=== PATIENT | female | born 1930 | race Caucasian/White ===

== ENCOUNTER 2017-01-09 15:23 | Inpatient (IN) ==
--- NOTE | 2017-01-09 16:07 | Emergency Department Note ---
Arrival - Arrival Chief Complaint: Weakness ED Nursing Triage Note: pt fell sunday. pt has swelling to legs. pt c/o weakness and pain to lt hip and lt shoulder Mode of Arrival: Stretcher Limitations: No Limitations Source: Patient, Family, RN Notes Reviewed Time Seen by Provider: 01/09/17 15:45 - History of Present Illness HPI Narrative: Patient is an 86-year-old white female who is a resident of [facility]. The patient apparently fell Sunday morning. She has difficulty standing now. The fall occurred 2 days prior to presentation to the emergency department. Patient denies hitting her head. She has not experienced any nausea or vomiting. She does complain of some left shoulder and left hip pain. Onset (ago): day(s) (2) Consistency: constant Severity: moderate Allergies/Adverse Reactions: Allergies Allergy/AdvReac Type Severity Reaction Status Date / Time No Known Allergies Allergy Unverified 01/09/17 15:39 Review of System - Review of System 12 point system: reviewed and no additional remarkable complaints except as stated - Review of System Constitutional: Absent: chills, fever Gastrointestinal: Absent: nausea, vomiting Medical,Surgical,& Family Hx - Medical History Cardio: History of: Hypertension Other: History of: Miscellaneous Medical Problems (lymphedema) - Social History Smoking Status: Never smoker Frequency of Alcohol Use: None Type of Drug Use: None Functional capacity: independent ambulation Exam Vital Signs: Vital Signs Temperature 98.5 F 01/09/17 16:48 Pulse Rate 110 H 01/09/17 16:48 Respiratory Rate 18 01/09/17 16:54 Blood Pressure 165/94 01/09/17 16:48 O2 Sat by Pulse Oximetry 98 01/09/17 15:30 GENERAL: This is a chronically ill-appearing white female in no apparent distress. VITAL SIGNS: Reviewed HEENT: Head is atraumatic and normocephalic. Pupils are equal round react to light. Extraocular movements are intact. Oropharynx is benign with moist mucous membranes. NECK: Neck is soft and supple without tenderness. There are no masses. There is no lymphadenopathy. LUNGS: Lungs are clear to auscultation. Chest rises symmetrically. There is no chest wall tenderness. CV: Heart is regular rate and rhythm without murmurs rubs or gallops. ABDOMEN: Abdomen is soft, nontender to palpation. There are no abdominal abnormal masses palpated. There is no organomegaly. Bowel sounds are present and active. SKIN: Skin is warm and dry. No rash. EXTREMITIES: Decreased passive range of motion in the left shoulder with decrease in abduction, internal and external rotation. Patient has reproducible pain with passive range of motion left hip. There is minimal tenderness overlying the left GT area. There is 2+ nonpitting pedal edema. NEUROLOGIC: Awake, alert, oriented to person. Cranial nerves II through XII are grossly intact. Motor is 4 over 5 in all extremities bilaterally. Deep tendon reflexes are 2+ and bilaterally equal. Course Course Narrative: Patient is unable to stand even with the assistance of 2 people. She is unable to perform her transfers. - Consultations Consultation #1: Discussed with hospitalist. Patient will be admitted to their service. Time: 18:04 Results - Labs CBC & BMP: 01/09/17 16:47 01/09/17 16:47 Lab Results: I have reviewed the patients labs Labs: Laboratory Tests 01/09/17 16:36 Urine pH 5.0 Ur Specific [place] 1.028 Urine Protein 30 Urine Glucose (UA) 50 Urine RBC 5 Urine WBC 3 - Diagnostic Findings Procedure: CT: image reviewed by me (CT pelvis: No evidence of acute fracture. Patient has severe DJD of the hips. Venous stent is present on the left), X-ray : image reviewed by me (Left shoulder x-ray: DJD of the left shoulder. Left hip x-ray: DJD of the left hip. No evidence of fracture. Left knee x-ray: No evidence of fracture, + DJD.) Disposition Clinical Impression: Fall, Dementia Case discussed with: patient, patient's family Condition: Stable
--- NOTE | 2017-01-09 16:26 | XRay Report ---
XR shoulder 2V LT Indication: Left shoulder pain, fall Comparison: None Technique: Frontal views of the left shoulder in internal and external rotation. Findings: No definite acute fracture or dislocation. Severe degenerative change of the glenohumeral joint. Calcific density noted along the supraspinatus attachment which may reflect calcific tendinosis. Diffuse osteopenia. IMPRESSION: As above. PROCEDURE INTERPRETED AT [facility] DEPARTMENT OF RADIOLOGY Final Report Signed by: Dr Rey Graff
--- NOTE | 2017-01-09 16:27 | XRay Report ---
XR hip 2v w pelvis LT Indication: Left hip pain, fall Comparison: None Technique: Single frontal view of the pelvis as well as frontal and frog-leg lateral views of the left hip Findings: Stent graft projects over the distal aorta and left iliac vasculature. Diffuse osteopenia. Moderate degenerative change of the hips. No definite acute fracture or dislocation demonstrated. Degenerative change of the lower lumbar spine. IMPRESSION: As above. PROCEDURE INTERPRETED AT [facility] DEPARTMENT OF RADIOLOGY Final Report Signed by: Dr Rey Graff
--- NOTE | 2017-01-09 17:15 | CT Report ---
CT pelvis wo con Indication: Left hip pain after fall. CT pelvis without contrast Technique: Axial noncontrast CT images of the pelvis were obtained. Coronal and sagittal reconstructions were provided. Findings: There is a venous stent extending from the left superficial femoral vein through the iliac system into the IVC. Visualized bowel, bladder and lower pole both kidneys appear unremarkable. No bowel obstruction. Both hips demonstrate joint space narrowing, acetabular and femoral head osteophyte development. No acute fracture of the femoral neck, intertrochanteric segment or acetabulum identified. Bony pelvis is intact without fracture. No diastases of the SI joints despite osteophytosis. Robust degenerative changes of the lumbar spine noted including grade 2 anterolisthesis of L4 on 5 and associated facet joint hypertrophy. Impression: Moderate arthritic changes of both hips and severe arthritis of the lumbar spine. No acute pelvic or hip fracture identified. Left femoral venous stent extending to the IVC. PROCEDURE INTERPRETED AT [facility] DEPARTMENT OF RADIOLOGY Final Report Signed by: Alli Samuel M.D.
[2017-01-09 17:19] LABS: Apearance,Urine CLEAR (Clear); Bilirubin,Urine Negative (Negative); Blood, Urine Negative (Negative); Glucose,Urine (UA) 50 mg/dL (Negative); Ketones,Urine Negative (Negative); Mucus,Urine Occasional /LPF (Occasional); Nitrite,Urine Negative (Negative); Protein,Urine 30 MG/DL; RBC,Urine 5 /HPF (0-4); Squamous Epithelial Cell,Urine Occasional /HPF (0-10); Urine Color Yellow (Yellow); Urine Specific Gravity 1.028 (1.001-1.035); WBC,Urine 3 /HPF (0-6)
[2017-01-09 17:23] LABS: Basophils % 0.3 % (0.0-0.8); Eosinophils % 0.2 % (0.00-10.9); Hemoglobin 12.9 GM/DL (12.0-16.0); Immature Granulocytes % 0.4 %; Immature Granulocytes Absolute 0.04 #; Lymphocytes # 1.9 10*3/uL (1.4-4.0); Lymphocytes % 19.1 % (21.3-54.2); Mean Corpuscular HGB Conc 33.9 GM/DL (32-36); Mean Corpuscular Hemoglobin 32 PG (27-34); Mean Platelet Volume 9.7 FL (9.6-12.0); Monocytes # 1.1 10*3/uL (0.11-0.8); Monocytes % 11.3 % (1.7-12.7); Neutrophils # 6.8 10*3/uL (1.4-7.4); Neutrophils % 68.7 % (38.7-73.9); Platelet Count 255 T/CUMM (130-400); Red Cell Distribution Width 12.6 % (9.3-17.3); White Blood Count 9.9 T/CUMM (4-12)
[2017-01-09 17:37] LABS: Bilirubin,Total 0.5 MG/DL (0.2-1.0); Calcium 9.2 MG/DL (8.5-10.1); Osmolality,Calculated 287.1 MOS/KG (273-304); Potassium 3.4 MMOL/L (3.5-5.1); Total Protein 6.1 G/DL (6.4-8.3)
--- NOTE | 2017-01-09 18:12 | XRay Report ---
XR knee 2V LT Indication: Pain. Left knee 3 views: No acute fracture or dislocation identified. There is a small joint effusion present as well as significant medial and lateral compartment joint space narrowing as well as 3 compartment osteophyte development. Chondrocalcinosis is noted as well. Impression: No acute injury. Relatively severe 3 compartment osteoarthritis with joint effusion and chondrocalcinosis. PROCEDURE INTERPRETED AT [facility] DEPARTMENT OF RADIOLOGY Final Report Signed by: Alli Samuel M.D.
--- NOTE | 2017-01-09 18:54 | Hospitalist History & Physical ---
Assessment and Plan (1) Hypokalemia Status: Acute Assessment and plan: Potassium noted at 3.4 at the time of admission. We will correct and recheck CMP in a.m. Current Visit: Yes (2) Dementia Status: Acute Current Visit: Yes (3) Fall Status: Acute Assessment and plan: All diagnostic tests thus far have been benign, there is no evidence of fracture. We will consult physical therapy to evaluate and treat. The patient may need swing bed placement if therapy is not available at [place]. Current Visit: Yes History of Present Illness Chief complaint: Generalized weakness secondary to fall History of present illness: This is a very pleasant 86-year-old female that presented to the ED at [facility] this afternoon from [place] for the evaluation of generalized weakness. The patient has a very complex medical history significant for hypertension, lymphedema, dementia. The patient's family is at bedside they was service historian. Her daughter reports that she was notified by the staff at [place] that her mother had sustained a fall early Sunday morning. Since the fall, the patient has become progressively weaker and has started to experience an inability to stand. Her daughter reports that she was told by the nursing staff that her mother did not strike her he however the patient has no recollection of the event. Upon interview, the patient did complain of some left shoulder and left hip pain. Labs were obtained at the time of presentation which were significant for hypokalemia with a potassium of 3.4, BUN of 21, glucose of 142, total protein of 6.1,and albumin at 3.0. X-ray of the left knee revealed no acute injury, severe 3 compartment osteoarthritis with joint effusion, and chondrocalcinosis. CT of the pelvis reported moderate arthritic changes in both hips and severe arthritis of the lumbar spine, no acute pelvic or hip fracture identified, and left venous staining extending to the inferior vena cava. X-ray of the left shoulder revealed no definite acute fraction or dislocation, severe degenerative change of the glenohumeral joint, calcific density noted along the supra spinatus attachment which may reflect calcific tendinosis, and diffuse osteopenia. X-ray of the left hip reported stent graft projects over the distal aorta and left iliac vasculature, diffuse osteopenia, moderate degenerative change of the hips, no definitive acute fracture or dislocation demonstrated, and degenerative change of the lower lumbar spine. After brief discussion with both Dr. Anne and Dr. Puentes, the patient will be admitted to the hospitalist service for further evaluation and continuation of care. Allergies Allergy/AdvReac Type Severity Reaction Status Date / Time No Known Allergies Allergy Unverified 01/09/17 15:39 Medical,Surgical,& Family Hx - Medical History Cardio: History of: Hypertension Other: History of: Miscellaneous Medical Problems (lymphedema) - Social History Smoking Status: Never smoker Frequency of Alcohol Use: None Type of Drug Use: None ROS unobtainable: due to mental status Exam - Constitutional Vitals: Period Temp Pulse Resp BP Sys/Croft Pulse Ox Last 24 Hr 98.5 F-98.5 F 110-110 18-18 165-165/94-94 98 General appearance: normal weight, no acute distress - Head Head exam: Present: normal inspection, normocephalic, atraumatic - Eye Eye exam: Present: EOMI. Absent: conjunctival injection, nystagmus Pupils: Present: BHAVESH, normal accommodation - ENT ENT exam: Present: normal exam, normal external ear exam, normal oropharynx - Neck Neck exam: Present: normal inspection. Absent: lymphadenopathy, meningismus, tenderness, thyromegaly - Respiratory Respiratory exam: Present: clear to auscultation bilaterally. Absent: rales, rhonchi, stridor, wheezes - Cardiovascular Cardiovascular exam: Present: irregular rhythm, regular rate and rhythm. Absent : carotid bruit, diastolic murmur, gallop, JVD, rubs, systolic murmur - GI/Abdominal GI/Abdominal exam: Present: normal bowel sounds, soft - Extremities Exam Extremities exam: Present: edema (+3 right lower leg; +4 left lower leg), other (Decreased ROM to left leg; painful to touch) - Neurological Exam Neurological exam: Present: alert, altered - Psychiatric Psychiatric exam: Present: normal affect, normal mood - Skin Skin exam: Present: normal color, warm, dry Results - Labs CBC & BMP: 01/09/17 16:47 01/09/17 16:47 Lab Results: I have reviewed the past 24 hour labs
[2017-01-09] MEDS ORDERED: ZALEPLON 5 MG CAPSULE PO PRN (19:00)
[2017-01-09] MEDS ORDERED: ACETAMINOPHEN 325 MG TABLET PO PRN (19:00)
[2017-01-09] MEDS ORDERED: ONDANSETRON 4 MG/2 ML VIAL IV PRN (19:00)
[2017-01-09] MEDS ORDERED: POTASSIUM CHLORIDE 20 MEQ TABLET PO ONE (19:59)
--- NOTE | 2017-01-09 21:04 | EKG Report ---
Stationary ECG Study [facility] Test Date: 01/09/2017 9:03:23 PM Pat Name: NICOLA RANDALL Department: Room: 535 Gender: F Car Sales Consultant: KIMBERLEY KENNEDY : 1930 Requested by: Darrian Puentes Order Number: [id number] Reading MD: SHAWNA PIZARRO Intervals [place] Rate: 98 P: 48 AR: 171 QRS: 48 QRSD: 129 T: -12 QT: 384 QTc: 439 Interpretive Statements SINUS RHYTHM WITH OCCASIONAL SUPRAVENTRICULAR PREMATURE COMPLEXES MODERATE INTRAVENTRICULAR CONDUCTION DELAY Electronically Signed On 01-11-17 16:34:00 CDT by SHAWNA PIZARRO [email or web address]
[2017-01-09] MEDS: SODIUM CHLORIDE 0.9% 1,000 ML IV SCH (22:05)
[2017-01-09] MEDS: DOCUSATE SODIUM 100 MG CAPSULE PO SCH (22:08)
[2017-01-09] MEDS: ENOXAPARIN 40 MG/0.4 ML SYRINGE SUBCUT SCH (22:08)
[2017-01-10 05:18] LABS: Basophils % 0.4 % (0.0-0.8); Eosinophils % 0.3 % (0.00-10.9); Hematocrit 35.1 VOL% (35.7-47.0); Hemoglobin 11.4 GM/DL (12.0-16.0); Immature Granulocytes % 0.4 %; Immature Granulocytes Absolute 0.03 #; Lymphocytes # 1.4 10*3/uL (1.4-4.0); Lymphocytes % 18.3 % (21.3-54.2); Mean Corpuscular HGB Conc 32.5 GM/DL (32-36); Mean Corpuscular Hemoglobin 31 PG (27-34); Mean Corpuscular Volume 95.9 FL (87-102); Mean Platelet Volume 9.6 FL (9.6-12.0); Monocytes # 0.9 10*3/uL (0.11-0.8); Monocytes % 12.1 % (1.7-12.7); Neutrophils # 5.1 10*3/uL (1.4-7.4); Neutrophils % 68.5 % (38.7-73.9); Platelet Count 216 T/CUMM (130-400); Red Blood Count 3.66 MC/CUMM (3.8-5.5); Red Cell Distribution Width 12.5 % (9.3-17.3); White Blood Count 7.4 T/CUMM (4-12)
[2017-01-10 05:56] LABS: Albumin 2.5 G/DL (3.4-5.0); Bilirubin,Total 1.2 MG/DL (0.2-1.0); Calcium 8.7 MG/DL (8.5-10.1); Osmolality,Calculated 281.3 MOS/KG (273-304); Potassium 3.6 MMOL/L (3.5-5.1); Total Protein 5.3 G/DL (6.4-8.3)
[2017-01-10 05:57] LABS: Calcium 8.4 MG/DL (8.5-10.1); Magnesium 1.7 MG/DL (1.8-2.4); Osmolality,Calculated 282.1 MOS/KG (273-304); Potassium 3.7 MMOL/L (3.5-5.1)
[2017-01-10] MEDS ORDERED: MAGNESIUM SULF RIDER 2 GM in PREMIX 1 EACH IV ONE (06:53)
[2017-01-10] MEDS: DOCUSATE SODIUM 100 MG CAPSULE PO SCH ×2 (09:13→20:27)
[2017-01-10] MEDS: PANTOPRAZOLE 40 MG TABLET PO SCH (09:13)
[2017-01-10] MEDS: SODIUM CHLORIDE 0.9% 1,000 ML IV SCH ×2 (14:34→23:14)
--- NOTE | 2017-01-10 17:09 | Hospitalist Progress Note ---
Assessment and Plan (1) Hypomagnesemia Status: Acute Current Visit: Yes (2) Fall Status: Acute Assessment and plan: Orthopedic surgery evaluation of left knee. PT OT consult. Discharge planning. Current Visit: Yes (3) Dementia Status: Chronic Current Visit: Yes Qualifiers: Dementia type: Alzheimer's disease (4) Hypokalemia Status: Acute Assessment and plan: Replaced Current Visit: Yes Hospitalist: Subjective Interval history: Patient seen and examined. No acute events overnight. Case discussed with nursing staff. Labs reviewed. Case discussed with the daughter at the bedside. Patient with advanced dementia is unable to provide much history. H& P reviewed. The patient has left knee pain and swelling with warmth to touch. X-rays were negative for acute fracture. Will consult orthopedic surgery and await PT OT evaluation. Patient may not be able to return to independent living in the short-term. Case also discussed with case management//social media strategist Exam - Constitutional Vitals: Period Temp Pulse Resp BP Sys/Croft Pulse Ox Last 24 Hr 97.9 F-99.0 F 90-102 18-20 146-178/70-87 97-99 Exam: Constitutional System: Mild distress. No tremulousness. Head: Normocephalic, atraumatic. Ears, Nose and Throat System: No pain or tenderness. No epistaxis or discharge Eyes System: Pupils equal, round, and reactive. Extraocular muscles intact. Neck: Supple, without adenopathy, No jugular venous distention. No thyromegaly, neck mass, or prior surgery apparent. Respiratory System: Chest clear to auscultation. Cardiovascular System: Heart with regular rate and rhythm. No murmur. GI System: Abdomen soft, nontender. Normo active bowel sounds present. Musculoskeletal System: limbs with no pedal edema. Full distal pulses. Swelling noted in the left knee with pain to touch and warmth to touch. No fluctuance and no sign of infection. Neurological System: No discernable sensory deficit. No aphasia Psychiatric System: Conversation is rational. Patient is pleasantly demented. Results - Labs CBC & BMP: 01/10/17 05:02 01/10/17 05:02 Lab Results: I have reviewed the past 24 hour labs
[2017-01-10] MEDS ORDERED: methylPREDNISolone ACETATE 40 MG/1 ML VIAL INTRAARTIC ONE (17:30)
--- NOTE | 2017-01-10 17:32 | Orthopedic Consult Note ---
History of Present Illness Chief complaint: Swollen painful left knee History of present illness: Ms. Hamm is a 86 year old female See dictated report Home Medications Medication Instructions Recorded Confirmed Type Mecobal/Levomefolat Ca/B6 Phos 1 tablet PO DAILY 01/10/17 01/10/17 History [Foltanx Tablet] Metoprolol Succinate Xl [Toprol Xl] 1 tablet PO DAILY 01/10/17 01/10/17 History Valsartan/Hydrochlorothiazide 1 tablet PO DAILY 01/10/17 01/10/17 History [Valsartan-Hctz 320-25 mg Tab] Allergies Allergy/AdvReac Type Severity Reaction Status Date / Time No Known Allergies Allergy Unverified 01/09/17 15:39 Medical,Surgical,& Family Hx - Medical History Cardio: History of: Hypertension Psychological: No history of: Anxiety Disorders, ADHD, Behavior Problems, Bipolar Disorder, Depression, Previous Suicide Attempt, Psychiatric/Substance Abuse Tx, Schizophrenia, Violent Behavior, Psychiatric Problems Neurology: History of: Dementia HEENT: History of: Eye Problem (cataract surgery bilat) Other: History of: Miscellaneous Medical Problems (lymphedema) - Surgical History Thoracic Surgeries: Patient denies;: Lobectomy Neurologic Surgeries: Patient denies: Neurologic Surgery - Social History Smoking Status: Never smoker Frequency of Alcohol Use: None Type of Drug Use: None Exam - Constitutional Vitals: Period Temp Pulse Resp BP Sys/Croft Pulse Ox Last 24 Hr 97.9 F-99.0 F 90-102 18-20 146-178/70-87 97-99 Results - Labs CBC & BMP: 01/10/17 05:02 01/10/17 05:02
[2017-01-10] MEDS: ENOXAPARIN 40 MG/0.4 ML SYRINGE SUBCUT SCH (20:27)
--- NOTE | 2017-01-11 03:03 | Consultation ---
An 86-year-old white female admitted to the medical service with acute onset of left knee pain and in ability to ambulate. Her family reports that she has been ambulatory in the nursing center where she lives. As recently as a few days ago, she was ambulating with [place] walk[place]. There was some type of injury or fall approximately 48 hours ago. Since that time, she has not been able to bear w eight. There is significant amount of weakness and deconditioning due to her age and other comorbidi ties. I have been asked to evaluate regarding her left knee pain, swelling, and warmth. PHYSICAL EXAMINATION Examination confirms a well-developed and well-nourished female. Both knees revealed moderate swelli ng. She has no effusion on the right knee. On the left side, she has approximately 30 cc effusion. She will not tolerate any range of motion beyond about 15 degrees of flexion. She is stable ligamen tously to the varus and valgus stress, but does not clinically have a septic knee. She will tolerate palpation and ballottement about her patella and the knee joint. There is no pain or swelling dista lly. RADIOGRAPHS: Confirm significant tricompartmental osteoarthritis. There is marked joint space narro wing and large osteophyte formations throughout. IMPRESSION: OSTEOARTHRITIS, LEFT KNEE. PLAN: I have discussed with she and her family my impression. I think there is a low probability of an infection, she does not act like a septic knee and her white count is normal. I have discussed w ith her the treatment options. We elected to aspirate the knee, approximately 30 cc of slightly clou dy but normal appearing synovial fluid was aspirated. This was followed up with 3 cc of 1% lidocaine and Depo-Medrol 40 mg. She immediately was able to move the knee about 45 degrees following the rem oval of the effusion. I have recommended an ice pack and hopefully up with the PT in the a.m. Thank you for the consultation.
[2017-01-11] MEDS: SODIUM CHLORIDE 0.9% 1,000 ML IV SCH ×2 (03:46→16:08)
[2017-01-11 05:07] LABS: Calcium 8.8 MG/DL (8.5-10.1); Magnesium 2.1 MG/DL (1.8-2.4); Potassium 3.8 MMOL/L (3.5-5.1)
[2017-01-11] MEDS: MELOXICAM 7.5 MG TABLET PO SCH (08:46)
[2017-01-11] MEDS: DOCUSATE SODIUM 100 MG CAPSULE PO SCH ×2 (08:46→20:19)
[2017-01-11] MEDS: PANTOPRAZOLE 40 MG TABLET PO SCH (08:46)
--- NOTE | 2017-01-11 08:51 | Orthopedic Progress Note ---
Orthopedics - Subjective Interval history: Confused this a.m. however knee is better less swelling and she can actively bend about 45 without much discomfort. Should improve following aspiration and injection if any problems concerns let us know follow-up as needed thank Exam - Constitutional Vitals: Period Temp Pulse Resp BP Sys/Crotf Pulse Ox Last 24 Hr 97.6 F-99.9 F 84-98 16-18 150-160/59-91 95-96 Results - Labs CBC & BMP: 01/10/17 05:02 01/11/17 03:38
--- NOTE | 2017-01-11 11:03 | Case Mgmt Physician Query Form ---
TB Signs and Symptoms Screening ([place]) INSTRUCTIONS: To be completed annually on residents/staff with a significant Tuberculin Skin Test (TST) upon admission/hire or a prior significant TST. To be completed on all staff at hire. Please respond to each listed symptom with an (X) in either the "YES" or "NO" box. Do you currently have any of the following symptoms: YES NO ( ) ( x) A cough If yes, is it: ( ) Productive ( ) Non- productive ( ) (x ) Hemoptysis (spitting up blood) ( ) (x ) Chest pains ( ) ( x) Weight Loss ( ) (x ) Fever ( ) (x ) Night Sweats ( ) (x ) Weakness ( ) ( x) Loss of Appetite ( ) (x ) Difficulty Breathing If you answered YES" to any of the above questions, how long have symptoms been present? Comments: If you have any questions, please contact me . Thank you, Karuna JENKINS Email: [email or web address] [facility]
--- NOTE | 2017-01-11 13:03 | Hospitalist Progress Note ---
Assessment and Plan (1) Fall Status: Acute Current Visit: Yes (2) Dementia Status: Chronic Current Visit: Yes Qualifiers: Dementia type: Alzheimer's disease (3) Hypokalemia Status: Acute Current Visit: Yes (4) Hypomagnesemia Status: Acute Assessment and plan: Patient needs swing bed upon disposition. Do not think it at this time she can return to independent living. Daughter said been discussed and they prefer [place] or [place]. Patient will need an additional night in the hospital to be eligible for swing bed. Current Visit: Yes Hospitalist: Subjective Interval history: Patient seems to be moving her joint more freely status post aspiration. Her family is concerned about her mental state. I told him we could get a formal evaluation of her mental status by speech therapy Exam - Constitutional Vitals: Period Temp Pulse Resp BP Sys/Croft Pulse Ox Last 24 Hr 97.4 F-99.9 F 64-98 16-18 115-174/59-91 95-96 General appearance: normal weight - Head Head exam: Present: normal inspection - Eye Eye exam: Present: EOMI Pupils: Present: BHAVESH - ENT ENT exam: Present: normal exam - Neck Neck exam: Present: normal inspection - Respiratory Respiratory exam: Present: clear to auscultation bilaterally - Cardiovascular Cardiovascular exam: Present: regular rate and rhythm - GI/Abdominal GI/Abdominal exam: Present: normal bowel sounds - Extremities Exam Extremities exam: Present: normal inspection - Back Exam Back exam: Present: normal inspection - Neurological Exam Neurological exam: Present: alert. Absent: oriented X3 Results - Labs CBC & BMP: 01/10/17 05:02 01/11/17 03:38
[2017-01-11] MEDS ORDERED: TUBERCULIN SKIN TEST 0.1 ML SYRINGE INTRADERM ONE (13:55)
--- NOTE | 2017-01-11 14:26 | XRay Report ---
XR chest 1V portable Indication: Cough. Comparison: None. Technique: Portable AP chest was performed. Findings: Heart size, mediastinal contour, and hilar structures demonstrate no significant abnormalities. The lung parenchyma is clear. Bones and soft tissues demonstrate no significant abnormalities. Impression: 1. No evidence of acute pathology. 01/11/2017 2:23 PM PROCEDURE INTERPRETED AT [facility] DEPARTMENT OF RADIOLOGY Final Report Signed by: Dr. Isaac Gaitan
[2017-01-11] MEDS: ENOXAPARIN 40 MG/0.4 ML SYRINGE SUBCUT SCH (20:19)
[2017-01-12] MEDS: SODIUM CHLORIDE 0.9% 1,000 ML IV SCH (04:18)
[2017-01-12] MEDS: PANTOPRAZOLE 40 MG TABLET PO SCH (08:58)
[2017-01-12] MEDS: DOCUSATE SODIUM 100 MG CAPSULE PO SCH (08:58)
[2017-01-12] MEDS: MELOXICAM 7.5 MG TABLET PO SCH (08:58)
--- NOTE | 2017-01-12 09:46 | Orthopedic Progress Note ---
Assessment and Plan (1) Arthritis of left knee Status: Acute Assessment and plan: Because she is progressing so well with therapy and has little to no pain since the injection, no further orthopedic intervention needed at this time. Okay to follow-up with Dr. Garcia in the office upon discharge from the hospital as needed Continue with weightbearing as tolerated. Use walker as needed. Ambulate with assistance to prevent falls. Current Visit: Yes Orthopedics - Subjective Interval history: Patient seen and examined. No complaints. States that her knee feels substantially better since undergoing the cortisone injection. Family at bedside Exam - Constitutional Vitals: Period Temp Pulse Resp BP Sys/Croft Pulse Ox Last 24 Hr 97.7 F-98.6 F 78-96 15-20 115-169/73-85 95-96 General appearance: no acute distress - Head Head exam: Present: normocephalic, atraumatic - ENT ENT exam: Present: normal exam - Neck Neck exam: Present: normal inspection - Extremities Exam Extremities exam: Present: normal inspection - Expanded Left Lower Knee exam: Present: normal inspection (Left knee: Dressing clean, dry, intact. No effusion, no ballottement. Good active range of motion without pain or crepitus. Compartments soft. Sensation is intact. Pulses 2+.) Results - Labs CBC & BMP: 01/10/17 05:02 01/11/17 03:38 Lab Results: I have reviewed the past 24 hour labs - Diagnostic Findings Procedure: X-ray: image reviewed by me, report reviewed by me
--- NOTE | 2017-01-12 10:51 | Discharge Summary ---
Hospital Course - Hospital Course Hospital Course: This hospitalization included patient admitted after a fall. CT of the pelvis was negative for fracture. She was evaluated with x-ray of her knees and subsequently had evaluation by orthopedic surgery. She had an injection of the knee pain continued to improve. There is felt to be no other need for orthopedic intervention at this time. She will follow with orthopedics on outpatient basis. Social work was consulted as patient's family felt the patient could not go home at this time needed further assistance and rehab. She has been accepted to swing bed at [facility]. At this time she is been afebrile the rest of her vitals have been stable. She had a good bowel movement last night. She is prepared for discharge today. - Time spent with patient Time with patient DS: Greater than 30 minutes (30 minutes for discharge) Diagnosis - Discharge Diagnosis (1) Fall Status: Resolved (2) Dementia Status: Chronic (3) Arthritis of left knee Status: Chronic Discharge Plan - Discharge Data Disposition: Disch/Xfer to Snf Condition at Discharge: Stable Discharge Diet: advance to your usual diet Activity: as per physical therapy Contact your physician if you experience:: fever over 101, Difficulty voiding - Discharge Medications New HYDROcodone/ACETAMIN 5-325 [[place] 5-325] 1 tablet PO Q4H PRN #30 tablet PRN Reason: Pain Mild (1-3) Pantoprazole Tab [Protonix Tab] 40 mg PO DAILY #30 tablet Continue Valsartan/Hydrochlorothiazide [Valsartan-Hctz 320-25 mg Tab] 1 tablet PO DAILY Metoprolol Succinate Xl [Toprol Xl] 1 tablet PO DAILY Mecobal/Levomefolat Ca/B6 Phos [Foltanx Tablet] 1 tablet PO DAILY - Follow Up or Referral - Forms/Instructions Additional Discharge Instructions: Patient continue with physical therapy as per swing bed. Follow with swing bed today. Continue to schedule appointment with primary provider Exam - Constitutional Vitals: Period Temp Pulse Resp BP Sys/Croft Pulse Ox Last 24 Hr 97.7 F-98.6 F 78-96 15-20 115-169/73-85 95-96 General appearance: normal weight - Head Head exam: Present: normal inspection - Eye Eye exam: Present: EOMI Pupils: Present: BHAVESH - Neck Neck exam: Present: normal inspection - Respiratory Respiratory exam: Present: clear to auscultation bilaterally - Cardiovascular Cardiovascular exam: Present: regular rate and rhythm - GI/Abdominal GI/Abdominal exam: Present: normal bowel sounds - Neurological Exam Neurological exam: Present: alert, CN II-XII intact - Psychiatric Psychiatric exam: Present: normal affect, normal mood DS: Provider Date of admission: 01/09/17 18:58 Primary care physician: . No PCP Attending physician on admission: Darrian Puentes MD Consults: 01/09/17 19:01 Consult to Occupational Therapy [CONS] Routine Reason for Occupational Therapy: Weakness Consult to Physical Therapy [CONS] Routine Reason for Physical Therapy: Weakness 01/09/17 21:11 Consult to Case Mgmt/Social Srvs [CONS] Routine Reason for Case Mgmt/Social Srvs: Rehab Other 01/10/17 15:39 Consult to Physician [CONS] Routine Comment: Consulting Provider: Celio Garcia Jr. Person Notified: Dr Garcia Date Notified: 01/10/17 Time Notified: 15:42 Discharging clinician: Gama Vásquez Jr., MD
[2017-01-12 12:18] VITALS: BP 164/75
== END 2017-01-12 12:20 | DRG 566 ==
LOC: N.ED 15:23 → SUATTDRO 18:58 → N.EDINP 18:58 → N.5E 19:29
PROVIDERS: ADMIT Internal Medicine Infectious Disease; ATTEND Internal Medicine Nephrology